=== PATIENT | female | born 2005 | race Caucasian/White ===

== ENCOUNTER 2025-01-23 18:46 | Emergency (ER) | payer MEDICAID ==
[~2025-01-23] VITALS: Ht 165.1 cm; Wt 52.3 kg
[~2025-01-23 18:46] MED LIST: DIPH-115 PO; [UNRECOGNIZED DRUG - CODE] TP
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
[2025-01-23] MEDS ORDERED: HYDR-3686 PO (19:56)
[2025-01-23 21:36] LABS: URINE HCG NEGATIVE (NEG)
[2025-01-23 21:52] VITALS: O2SAT 100
[2025-01-23 22:02] VITALS: BP 122/78; PULSE 82; RESP 15
== END 2025-01-23 22:06 | disposition home or self-care (01) ==
LOC: ER 18:47
DX: T71.9XXA Asphyxiation due to unspecified cause, initial encounter (principal); G47.00 Insomnia, unspecified; Z79.899 Other long term (current) drug therapy
CPT/HCPCS: 81025; 99283

== ENCOUNTER 2025-02-17 14:03 | Emergency (ER) | payer OTHER, MEDICAID ==
[~2025-02-17] VITALS: Ht 165.1 cm; Wt 37.8 kg
[~2025-02-17 14:03] MED LIST changes: +HYDR-3686 PO
[2025-02-17 14:22] VITALS: BP 92/56; PULSE 111; RESP 15; TEMP 99.8; O2SAT 99
--- NOTE | 2025-02-17 14:26 | Physician Documentation ---
History of Present Illness ~ Chief Complaint: Sore Throat Stated Complaint: SORE THROAT OK to notify your PCP?: Yes Primary Medical Doctor: [place] Source: patient Mode of Arrival: POV Exam Limitations: no limitations HPI 19-year-old female presents with a sore throat for the past 2 days. She denies any fever or cough or other associated symptoms. Medication Reconciliation Allergies: Coded Allergies: No Known Allergies (Unverified , 01/23/25) Scheduled Diphenhydramine Hcl (Benadryl Liquid), 10 ML PO Q6H Hydroxyzine Hcl* (Atarax*), 1-2 TAB PO HS Podofilox (Condylox), 2 DROP TP DAILY Past Medical History Past Medical History: No Pertinent History Past Surgical History: no surgical history Alcohol Use: None Lives with: Mother Lives In: Home Occupation: student, child Review of Systems All Other Systems at this time: Reviewed and Negative Physical Exam Vital Signs: RN Vital Signs have been reviewed: Yes, Temperature: 99.8, Source: Oral, Heart Rate: 111, Respiratory Rate: 15, BP: 92/56, Pulse Oximetry: 99, Weight: 37.800 Pulse Oximetry Reflects: adequate oxygenation Physical Exam General: Alert, no distress. HEENT: No injection, moist mucous membranes. Neck: Full range of motion. Respiratory: No respiratory distress, equal chest rise and fall. Chest: No accessory muscle use. Cardiovascular: Regular rate and rhythm. Gastrointestinal: Nondistended. Extremities: Normal range of motion, no deformity. Neurologic: Oriented x4. Psychiatric: Normal mood and affect. Skin: Normal color, warm and dry. Progress Results/Orders Results/Orders Vital Signs 02/17/25 14:22 Temp 99.8 Pulse 111 Resp 15 B/P (MAP) 92/56 Pulse Ox 99 Departure Disposition: LEFT AWOL/ELOPED Impression: Primary Impression: Eloped from emergency department Referrals: NO PRIMARY CARE PROVIDER (PCP) Additional Comment Medical Screen Exam This patient recieved a medical screening examination. After reviewing the individual's medical complaints with presenting symptoms and performing an appropriate physical examination, it was determined that no immediate life- threatening emergency medical condition is present. This individual is also not a women having contractions. Signature Scribe Signature: . Attestation: Scribed for Emergency,Department by Doris Craft NP . 02/17/25 17:12 DORIS PAYTON [facility] Feb 17, 2025 14:25
== END 2025-02-17 18:54 | disposition left against medical advice (07) ==
LOC: ER 14:04
DX: J02.9 Acute pharyngitis, unspecified (principal); Z79.899 Other long term (current) drug therapy
CPT/HCPCS: 99282